=== PATIENT | female | born 1960 | race Caucasian/White ===

== ENCOUNTER → 2023-10-21 15:26 | Outpatient (REF) | payer OTHER, SELFPAY | LOC: RAD 15:26 | DX: M54.6 Pain in thoracic spine (principal) | CPT/HCPCS: 72072 ==

== ENCOUNTER → 2023-11-25 11:41 | Outpatient (REF) | payer OTHER, SELFPAY | LOC: RAD 11:41 | PROVIDERS: ATTENDING PHYSICIAN Physician Assistant; FAMILY PHYSICIAN Nurse Practitioner | DX: M25.551 Pain in right hip (principal); M25.561 Pain in right knee; M54.50 Low back pain, unspecified; M54.9 Dorsalgia, unspecified; R76.8 Other specified abnormal immunological findings in serum | CPT/HCPCS: 72114; 73502; 73564; 73590 ==

== ENCOUNTER → 2024-01-06 13:48 | Outpatient (REF) | payer OTHER, SELFPAY | LOC: WDC 13:48 | PROVIDERS: ATTENDING PHYSICIAN Obstetrics & Gynecology; FAMILY PHYSICIAN Nurse Practitioner | DX: Z12.31 Encounter for screening mammogram for malignant neoplasm of breast (principal); R09.81 Nasal congestion | CPT/HCPCS: 71046; 77063; 77067 ==

== ENCOUNTER → 2024-01-27 17:49 | Outpatient (REF) | payer OTHER, SELFPAY | LOC: PAVMRI 17:49 | PROVIDERS: ATTENDING PHYSICIAN Orthopaedic Surgery; FAMILY PHYSICIAN Nurse Practitioner | DX: M54.16 Radiculopathy, lumbar region (principal); M47.816 Spondylosis without myelopathy or radiculopathy, lumbar region | CPT/HCPCS: 72148 ==

== ENCOUNTER 2024-11-22 09:33 | Emergency (ER) | payer OTHER, SELFPAY ==
[2024-11-22 09:34] VITALS: BP 155/80
[2024-11-22 10:10] VITALS: BP 104/56
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
[2024-11-22 10:13] VITALS: BMI 24.1
--- NOTE | 2024-11-22 10:13 | EDRN ---
[place] CHRISTENSEN in room w/ pt.
== END 2024-11-22 10:30 | disposition home or self-care (01) ==
LOC: EMR 09:33
PROVIDERS: EMERGENCY PHYSICIAN Emergency Medicine; FAMILY PHYSICIAN Nurse Practitioner
DX: S42.001A Fracture of unspecified part of right clavicle, initial encounter for closed fracture (principal); V18.0XXA Pedal cycle driver injured in noncollision transport accident in nontraffic accident, initial encounter; E03.9 Hypothyroidism, unspecified
CPT/HCPCS: 99283; 73000; 73030

== ENCOUNTER → 2025-02-01 14:40 | Outpatient (REF) | payer OTHER, SELFPAY | LOC: WDC 14:40 | PROVIDERS: ATTENDING PHYSICIAN Obstetrics & Gynecology; FAMILY PHYSICIAN Nurse Practitioner | DX: Z12.31 Encounter for screening mammogram for malignant neoplasm of breast (principal) | CPT/HCPCS: 77063; 77067 ==

== ENCOUNTER → 2025-03-08 16:30 | Outpatient (REF) | payer OTHER, SELFPAY | LOC: RAD 16:30 | PROVIDERS: ATTENDING PHYSICIAN Otolaryngology; FAMILY PHYSICIAN Nurse Practitioner | DX: J32.9 Chronic sinusitis, unspecified (principal) | CPT/HCPCS: 70486 ==